=== PATIENT | female | born 1970 | race Caucasian/White ===

== ENCOUNTER 2018-03-24 19:06 | Emergency (ER) | payer OTHER ==
[~2018-03-24] VITALS: Ht 170.2 cm; Wt 117.9 kg
[~2018-03-24 19:06] MED LIST: BENZ100A PO; CEPH500 PO; CIPRO500 MG PO; CYCL10 PO; Flomax0.4 MG PO; HYDACE5 PO; HYDMOR2 PO; IPRAIS NEB; KETO10 PO; LEVFLO500 PO; METCAR500 PO; METPRE4DP PO; NAPR500 PO; ONDA4ODT MM; OXYACE5T PO; PRED20 PO; PROM25 PO; Percocet 10-321 EACH PO; Percocet 5-3251 EACH PO; RXCYCL10 PO; RXHYDMOR2 PO; RXONDA4ODT MM; RXOXYACE PO; TAMS.4ER PO; VICODIN 5-3001 EACH PO; Zofran Odt4 MG SL; Zofran Odt8 MG SL
[2018-03-24 20:00] LABS: BASOPHILS ABSOLUTE AUTO 0.02 K/mm3 (0.00-0.23); BASOPHILS PERCENT AUTO 0 % (0-2); EOSINOPHILS PERCENT AUTO 4 % (0-6); Hematocrit 42.6 % (33.0-51.0); Hemoglobin 13.7 g/dL (11.5-16.0); IMMATURE GRAN ABSOLUTE AUTO 0.01 K/mm3 (0.00-0.10); IMMATURE GRAN PERCENT AUTO 0 % (0-1); LYMPHOCYTES ABSOLUTE AUTO 1.43 K/mm3 (0.84-5.20); LYMPHOCYTES PERCENT AUTO 31 % (21-46); MONOCYTES ABSOLUTE AUTO 0.36 K/mm3 (0.16-1.47); MONOCYTES PERCENT AUTO 8 % (4-13); Mean Corpuscular HGB 26.7 pg (26.0-34.0); Mean Corpuscular HGB Conc 32.2 g/dL (31.5-36.5); Mean Corpuscular Volume 83 fL (80-100); Mean Platelet Volume 10.7 fL (9.1-12.4); NEUTROPHILS ABSOLUTE AUTO 2.58 K/mm3 (1.96-9.15); NEUTROPHILS PERCENT AUTO 56 % (41-73); Platelet Count 209 K/mm3 (150-400); RDW Coefficient Variation 12.8 % (11.7-14.2); RDW Standard Deviation 38.8 fL (35.1-46.3); Red Blood Cell Count 5.13 M/mm3 (3.80-5.20)
[2018-03-24 20:21] LABS: Alanine Aminotransfer (ALT/SGP 58 U/L (12-78); Albumin, Blood 3.7 g/dL (3.4-5.0); Albumin/Globulin Ratio 0.8 (0.8-1.8); Alk Phos 113 U/L (50-136); Anion Gap 8 mmol/L (6-16); Aspartate Aminotrans (AST/SGOT 30 U/L (12-37); Bilirubin, Total 0.3 mg/dL (0.1-1.0); Blood Urea Nitrogen 15 mg/dL (8-24); Bun/Creatinine Ratio 22.7 (12.0-20.0); CO2, Blood 24 mmol/L (21-32); Calcium, Blood 9.4 mg/dL (8.5-10.1); Chloride, Blood 103 mmol/L (98-108); Creatinine, Blood 0.66 mg/dL (0.40-1.00); Globulin, Blood 4.5 g/dL (2.2-4.0); Glomerular Filtration Rate >60 (60-); Glucose, Blood 367 mg/dL (70-99); Potassium, Blood 3.8 mmol/L (3.5-5.5); Sodium, Blood 135 mmol/L (136-145); Total Protein, Blood 8.2 g/dL (6.4-8.2)
[2018-03-24 20:38] LABS: Source, Urine Clean Catch
[2018-03-24 20:42] LABS: Bilirubin, Urine Neg (Neg); Blood, Urine Neg (Neg); Glucose Qualitative, Urine 4+ (Neg); Ketones, Urine Neg (Neg); Leukocyte Esterase, Urine Neg (Neg); Nitrite, Urine Neg (Neg); Protein, Urine Neg (Neg); Urobilinogen, Urine NORM (Normal)
[2018-03-24 20:44] LABS: Appearance, Urine Clear (Clear); Color, Urine Yellow (P-Yellow)
[2018-03-24] MEDS ORDERED: METF500 PO (22:10)
[2018-03-24] MEDS ORDERED: Pseudoephedrine30 MG PO (22:10)
[2018-03-24] MEDS ORDERED: Mucinex600 MG PO (22:10)
[2018-03-24] MEDS ORDERED: IBUP800 PO (22:10)
== END 2018-03-24 22:35 | disposition home or self-care (01) ==
LOC: ER 19:06
PROVIDERS: Emergency Medicine
DX: R73.9 Hyperglycemia, unspecified (principal); J06.9 Acute upper respiratory infection, unspecified; Z87.442 Personal history of urinary calculi; Z87.891 Personal history of nicotine dependence; Z88.0 Allergy status to penicillin; Z88.5 Allergy status to narcotic agent; Z79.84 Long term (current) use of oral hypoglycemic drugs; Z79.899 Other long term (current) drug therapy
CPT/HCPCS: 36415; 71046; 80053; 81003; 82010; 82800; 82947; 85025; 93005; 93010; 96361; 96374; 99284; J1885; J7030

== ENCOUNTER → 2019-11-08 | Outpatient (CLI) | payer SELFPAY ==
[~2019-11-08] MED LIST changes: +IBUP800 PO; +METF500 PO; +Mucinex600 MG PO; +Pseudoephedrine30 MG PO
== END ==
LOC: LAB SHORT 13:37 → LAB 14:47
DX: R30.0 Dysuria (principal)
CPT/HCPCS: 87077; 87086; 87186

== ENCOUNTER 2022-06-08 22:48 | Emergency (ER) | payer BC ==
[~2022-06-08] VITALS: Ht 167.6 cm; Wt 117.9 kg
[2022-06-08] MEDS ORDERED: Percocet 5-3251 EACH PO (23:59)
== END 2022-06-09 00:25 | disposition home or self-care (01) ==
LOC: ER 22:48
DX: T23.252A Burn of second degree of left palm, initial encounter (principal); X17.XXXA Contact with hot engines, machinery and tools, initial encounter
CPT/HCPCS: 99283; A9270